=== PATIENT | female | born 2000 | race Caucasian/White ===

== ENCOUNTER 2021-01-07 13:15 | Emergency (ER) | payer SELFPAY | END 2021-01-07 13:19 | disposition left against medical advice (07) | PROVIDERS: Emergency Provider Internal Medicine Hematology & Oncology; PCP Family Medicine | DX: Z53.21 Procedure and treatment not carried out due to patient leaving prior to being seen by health care provider (principal) | CPT/HCPCS: 99199 ==

== ENCOUNTER 2021-01-07 15:29 | Emergency (ER) | payer OTHER, SELFPAY ==
[2021-01-07 15:57] VITALS: BP 112/64; PULSE 98; RESP 16; TEMP 36.9; O2SAT 99
--- NOTE | 2021-01-07 17:15 | ED.GENADULT ---
HPI - General Adult General Chief complaint: Ear Stated complaint: ear pain Source: patient Mode of arrival: ambulatory Limitations: no limitations History of Present Illness HPI narrative: Patient is a 20-year-old female who presents to the [facility] via POV for evaluation of bilateral ear pain that is been present for 2 days. Additionally, she reports nasal congestion rhinorrhea. Denies taking OTC meds for symptoms. Nothing improves or worsen symptoms. Denies known exposure to sick contacts. She is fully vaccinated for Covid. Of note, she is going to a concert in [place] soon and recently had a PCR test. PCR test has not resulted. Review of Systems Review of Systems: Denies history of COPD, bronchitis, asthma, and pneumonia. Denies current/past tobacco use. Pertinent negatives: fever, sweats, chills, change in appetite, fatigue, skin color changes, headache, hearing difficulty, ear drainage, tinnitus, vertigo, dizziness, lymphadenopathy, sinus problems, ear pain/drainage, chest pain, heart murmurs, heart palpitations, shortness of breath, wheezing, cyanosis, hemoptysis, hoarseness, orthopnea, pleuritic pain, nausea, vomiting, diarrhea, and myalgias. [facility] Past Medical History Medical History (Updated 01/07/21 @ 17:29 by Gennaro Smiley, MILLINERY BLOCKER, ) ADHD Comments I have reviewed and agree with the patient's past medical, surgical, social, and family hx as documented by the RN. There is no relevant family history pertinent to the presenting complaint. Exam Narrative: GENERAL: Well-appearing, well-nourished, and in no acute distress. HEAD: Normocephalic, atraumatic. No sinus tenderness or facial swelling appreciated. EYES: PERRLA and EOMI. No evidence of erythema, swelling, or drainage. ENT: Bilateral external ears and ear canals normal. Bilateral TMs are normal. No TM perforation. Nares clear, no rhinorrhea or epistaxis. Bilateral turbinates are moderately erythematous and edematous. Mucous membranes moist and pink. Uvula is midline is without swelling although is moderately erythematous. No evidence of petechial rash, cobblestoning, lesions, ulcers, exudates, peritonsillar abscess, tenting, or drooling. Breath odor and voice normal. NECK: Supple. No Lymphadenopathy or nuchal rigidity appreciated. CHEST: Bilateral lung guerrero are clear to auscultation. No respiratory distress. No evidence of cough or pleuritic cp upon examination. HEART: Regular rate and rhythm. No murmur, gallop, or rub heard. EXTREMITIES: Normal range of motion. No edema. SKIN: Warm, dry, no rash. NEURO: No focal deficits. Alert and oriented x3. Course Vital Signs Vital signs: Vital Signs Temperature 98.4 F 01/07/21 15:57 Pulse Rate 98 01/07/21 15:57 Respiratory Rate 16 01/07/21 15:57 Blood Pressure 112/64 01/07/21 15:57 Pulse Oximetry 99 01/07/21 15:57 Temperature 98.4 F 01/07/21 15:57 Pulse Rate 98 01/07/21 15:57 Respiratory Rate 16 01/07/21 15:57 Blood Pressure 112/64 01/07/21 15:57 Pulse Oximetry 99 01/07/21 15:57 Medical Decision Making Differential Diagnosis Differential Diagnosis: Allergic rhinitis, ABRS, acute viral sinusitis, strep pharyngitis, nasopharyngitis, bronchitis, pneumonia, AOM, otitis externa, viral URI, influenza Medical Records Medical records reviewed: Yes I reviewed the external patient's medical records. Vital Signs Vital Signs: Vital Signs Temperature 98.4 F 01/07/21 15:57 Pulse Rate 98 01/07/21 15:57 Respiratory Rate 16 01/07/21 15:57 Blood Pressure 112/64 01/07/21 15:57 Pulse Oximetry 99 01/07/21 15:57 Temperature 98.4 F 01/07/21 15:57 Pulse Rate 98 01/07/21 15:57 Respiratory Rate 16 01/07/21 15:57 Blood Pressure 112/64 01/07/21 15:57 Pulse Oximetry 99 01/07/21 15:57 Critical Care Time Critical Care Time Critical Care Time: No Discharge Plan Discharge Clinical Impression: Acute upper respiratory infection P
== END 2021-01-07 17:37 | disposition home or self-care (01) ==
PROVIDERS: Emergency Provider Nurse Practitioner Family
DX: J06.9 Acute upper respiratory infection, unspecified (principal)
CPT/HCPCS: 99213; G0463

== ENCOUNTER 2021-02-27 15:33 | Outpatient (CLI) | payer OTHER, SELFPAY ==
--- NOTE | ~2021-02-27 | XR_ITS ---
EXAMINATION: XR chest 2V DATE: 02/27/2021 15:50 INDICATION: Acute cough. TECHNIQUE: Frontal and lateral views of the chest were obtained. COMPARISON: None. FINDINGS: The chest demonstrates clear lungs without pneumonia, pleural effusion, or pneumothorax. Th e heart size is normal. IMPRESSION: 1. No acute cardiopulmonary disease. Reviewed, dictated and finalized at location A. RER HELPER
== END 2021-02-27 15:34 | disposition home or self-care (01) ==
LOC: ANHIMG 15:38
PROVIDERS: PCP Family Medicine; Visit Provider Physician Assistant
DX: R05.1 Acute cough (principal)
CPT/HCPCS: 71046

== ENCOUNTER 2022-03-05 12:58 | Outpatient (CLI) | payer OTHER, SELFPAY ==
--- NOTE | ~2022-03-05 | XR_ITS ---
XR lumbar spine 2-3V 03/05/2022 13:29 Indication: Low back pain Procedure: 3 views lumbar spine Comparison: No prior studies for comparison. Findings: Mild wedge-shaped appearance to T11 and T12, likely developmental or chronic. Vertebral bod y heights are maintained and the lumbar spine. No significant disc narrowing. There is normal alignme nt. Pedicles intact. Impression: 1: No significant abnormality of the lumbar spine. Reviewed, dictated and finalized at location A. TH PROGRAM MANAGER Impression: 1: No significant abnormality of the lumbar spine.
--- NOTE | ~2022-03-05 | XR_ITS ---
XR thoracic spine 3V DATE: 03/05/2022 13:29 INDICATION: Back pain TECHNIQUE: AP, lateral, swimmer views COMPARISON: None FINDINGS: No fracture or dislocation or bone destruction. The thoracic pedicles are intact. No parasp inal soft tissue thickening. No scoliosis. IMPRESSION: Negative Reviewed, dictated and finalized at location B. TEGIC ANALYST IMPRESSION: Negative
== END 2022-03-05 12:59 | disposition home or self-care (01) ==
LOC: ANHIMG 13:03
PROVIDERS: PCP Physician Assistant; Visit Provider Physician Assistant
DX: M54.50 Low back pain, unspecified (principal)
CPT/HCPCS: 72072; 72100

== ENCOUNTER 2022-04-27 14:00 | Outpatient (RCR) | payer OTHER, SELFPAY ==
--- NOTE | 2022-04-20 15:08 | PTOPEVAL1 ---
Assessment and note entered by Chiquita Loera, PT Evaluation Information Assessment Status Evaluation Diagnosis Ehler Danlos syndrome Onset about one year Subjective Information most concern about: legs--pain and weakness of hips, knees and ankles; more pain and discomfort over the past year; no recent falls or trauma to legs; feels like she needs to build up her stamina and activity level; have some panic when get SOB; mostly stays at home; does light cooking and tasks , does not do much; Reported Pain Level Pain Score Self Report Additional Pain Score Comments pain range in past week: 2-5/10; B hips, knees and ankles- at joints; muscle cramps and spasms; feel unsteady on feet, like knees going backwards and going to give out and fall; Assessment PT Clinical Summary Ro has the diagnosis of Ehler Danlos/ hypermobility syndrome. She reports her most concern is about pain/discomfort and weakness of her legs, and walking balance-feels off balance and cannot control her walking, bumps into things. She is not doing any fitness exercises. She does not work outside of the home and rarely goes out due to anxiety with crowds and too much stimulation. The PT order includes aquatic therapy. She was not really interested in the water therapy--stated water would probably be too much stimulation for her and too anxious about driving home with a wet suit. With the PT evaluation, she has decreased strength of trunk and LE's, with poor posture of LE's; With the 2 minute walking test, her distance was 375' and her HR increased to 124, with resting HR of 91. Skilled PT services are indicated for therapeutic exercises to increase LE and trunk strength, gait and balance, education for posture/position/ joint protection and home exercises. Plan of Care Interventions Gait Training,Hot Pack/Cold Pack,Manual Therapy, Neuro Re-education,Patient/Caregiver Education, Therapeutic Activities,Therapeutic Exercise Other Interventions taping PT Services Indicated Yes Treatment Frequency and 1x/wk for 5 weeks Duration These treatments will address the objective and functional deficits as de
--- NOTE | 2022-05-03 13:39 | PCPTNOTE ---
pt called and canceled today's appt due to someone in her home has covid.
--- NOTE | 2022-06-25 13:22 | PCPTNOTE ---
PHYSICAL THERAPY DISCHARGE 06-25-22 Attending Provider: ADY VELA MD Patient:Ro Colindres Date of :2000 Ms. Colindres has not returned for any further treatments since the initial evaluation on 04/27/2022 for the diagnosis of Ehler Danlos syndrome; therefore she will be discharged at this time. The goals were not assessed. Thank you for referring Ro to [facility].
== END 2022-06-28 10:45 | disposition home or self-care (01) ==
LOC: ANHPT 14:00
PROVIDERS: PCP Physician Assistant
DX: Q79.62 Hypermobile Ehlers-Danlos syndrome (principal)
CPT/HCPCS: 97110; 97161; 97530

== ENCOUNTER 2023-06-16 14:33 | Outpatient (CLI) | payer OTHER, SELFPAY ==
--- NOTE | ~2023-06-16 | US_ITS ---
EXAMINATION: US renal BI DATE: 06/16/2023 15:34 INDICATION: Dysuria TECHNIQUE: Multiple ultrasound grayscale images of the kidneys were obtained. COMPARISON: None. FINDINGS: The right kidney measures 11.0 x 5.7 x 5.0 cm. The left kidney measures 10.9 x 5.8 x 5.8 cm. The kidn eys demonstrate normal echogenicity. There is no hydronephrosis in either kidney. No stones identifi ed. The distended bladder appears normal with calculated prevoid bladder volume of 1149 mL with bilat eral ureteral jets visualized on color Doppler . Mildly increased calculated postvoid residual bladde r volume of 65 mL. IMPRESSION: 1. Normal kidneys without hydronephrosis. 2. Mild increased postvoid residual bladder volume of 65 mL. Reviewed, dictated and finalized at location A. IAC REHAB NURSE
== END 2023-06-16 14:34 | disposition home or self-care (01) ==
PROVIDERS: PCP Physician Assistant
DX: R30.0 Dysuria (principal)
CPT/HCPCS: 76775

== ENCOUNTER 2023-10-04 10:11 | Outpatient (CLI) | payer OTHER, SELFPAY ==
--- NOTE | 2023-10-04 10:45 | EST_ITS ---
Patient Info Name: Ro Colindres Age: 23 years : 2000 Gender: Female Ht: 71 in Wt: 121 lbs BSA: 1.64 m2 HR: 71 bpm BP: 101 / 58 mmHg Heart Rhythm: Sinus Rhythm Exam Date: 10/04/2023 10:55 AM Exam Location: Echo Lab Patient Status: Outpatient Admit Date: 10/04/2023 Staff Ordering Physician: Ebenezer Burgos DO Attending Provider: Ebenezer Burgos DO Exercise Technologist: Laura Davies CT Exercise Physician: Ebenezer Burgos DO Exam Type: CA stress test treadmill Study Info Indications R06.02 - Shortness of breath R07.89 - Other chest pain A treadmill exercise stress test was performed. Summary 1. 1. Negative Ajay exercise stress test for ischemic ST changes by ECG criteria. However, patient achieved only 77% MPHR for age group which reduces sensitivity of the test. 2. 2. Reduced functional capacity, achieving 9 METs of workload. 3. 3. Appropriate HR response to exercise. 4. 4. Appropriate HR recovery at 1 minute post exercise. 5. 5. No imaging with stress testing. 6. 6. Patient informed of the above results. Protocol: Ajay Stress ECG Details Stage: REST Duration (min): 1 min : 27 sec Speed (mph): 0.0 Grade (%): 0 HR (bpm): 63 SBP (mmHg): 101 DBP (mmHg): 58 METS: --- Stage: REST Duration (min): 24 min : 31 sec Speed (mph): 0.0 Grade (%): 0 HR (bpm): 59 SBP (mmHg): 101 DBP (mmHg): 58 METS: --- Stage: STAGE 1 Duration (min): 1 min : 0 sec Speed (mph): 1.7 Grade (%): 10 HR (bpm): 96 SBP (mmHg): 101 DBP (mmHg): 58 METS: --- Stage: STAGE 1 Duration (min): 2 min : 0 sec Speed (mph): 1.7 Grade (%): 10 HR (bpm): 106 SBP (mmHg): 101 DBP (mmHg): 58 METS: --- Stage: STAGE 1 Duration (min): 3 min : 0 sec Speed (mph): 1.7 Grade (%): 10 HR (bpm): 111 SBP (mmHg): 101 DBP (mmHg): 41 METS: --- Stage: STAGE 2 Duration (min): 1 min : 0 sec Speed (mph): 2.5 Grade (%): 12 HR (bpm): 122 SBP (mmHg): 101 DBP (mmHg): 41 METS: --- Stage: STAGE 2 Duration (min): 2 min : 0 sec Speed (mph): 2.5 Grade (%): 12 HR (bpm): 131 SBP (mmHg): 103 DBP (mmHg): 63 METS: --- Stage: STAGE 2 Duration (min): 3 min : 0 sec Speed (mph): 2.5 Grade (%): 12 HR (bpm): 136 SBP (mmHg): 103 DBP (mmHg): 63 METS: --- Stage: STAGE 3 Duration (min): 1 min : 0 sec Speed (mph): 3.4 Grade (%): 14 HR (bpm): 148 SBP (mmHg): 102 DBP (mmHg): 65 METS: --- Stage: STAGE 3 Duration (min): 1 min : 27 sec Speed (mph): 3.4 Grade (%): 14 HR (bpm): 153 SBP (mmHg): 102 DBP (mmHg): 65 METS: --- Stage: RECOVERY Duration (min): 0 min : 32 sec Speed (mph): 0.0 Grade (%): 0 HR (bpm): 144 SBP (mmHg): 102 DBP (mmHg): 65 METS: --- Stage: RECOVERY Duration (min): 1 min : 32 sec Speed (mph): 0.0 Grade (%): 0 HR (bpm): 114 SBP (mmHg): 102 DBP (mmHg): 65 METS: --- Stage: RECOVERY Duration (min):
== END 2023-10-04 10:12 | disposition home or self-care (01) ==
LOC: ANHCARD 10:12
PROVIDERS: PCP Physician Assistant; Visit Provider Internal Medicine Cardiovascular Disease
DX: R07.89 Other chest pain (principal); R06.02 Shortness of breath
CPT/HCPCS: 93017

== ENCOUNTER 2024-03-23 07:49 | Outpatient (RCR) | payer OTHER, SELFPAY ==
--- NOTE | 2024-03-23 09:02 | OPREHPOC ---
Outpatient Therapy Plan of Care This is a Multidisciplinary Plan of Care that may contain components documented by all disciplines (PT, OT, and ST.) PT Problem 1 PT Problem #1 Knowledge Deficit PT Goal 1 Goal / Goal Update *indep with HEP Target Visit 8 PT Goal 2 Goal / Goal Update * pt demonstrate correct body mechanics with lifting from floor Target Visit 8 PT Problem 2 PT Problem #2 Pain PT Goal 1 Goal / Goal Update * pain rating of trunk 4/10 at worst Target Visit 8 PT Goal 2 Goal / Goal Update * improve activity tolerance with Oswestry rating of 36% limitation in activity level Target Visit 8 PT Problem 3 PT Problem #3 Impaired Strength PT Goal 1 Goal / Goal Update increase strength of trunk and hips, to improve stability & posture to trunk and spine: 1* pt sit without rounded trunk/shoulders 2* supine bridge x 20 reps with good stability 3* side lying hip abduction to 10' R x 20 reps 4* side lying hip abduction to 10' L x 20 reps Target Visit 8
--- NOTE | 2024-03-23 09:02 | PTOPEVAL1 ---
Assessment and note entered by Chiquita Loera, PT Evaluation Information Assessment Status Evaluation Other ICD-10 Condition Codes ( M94.0 costochondritis PT) Onset about one year ago Subjective Information started as heart palpitations, hospitalized 2x due to more pain; sliver handler cleared; pain was so bad, could not do things around the house--not feed or care for cats; pain with any moving or deep breathing; kept arms at her side and did not take deep breaths; cymbalta helping- better over the past 2-3 weeks; Activity: does not work outside of home; indep with home and self care tasks; has been trying to do more-- kitchen tasks, laundry Goal: exercises to keep her moving and feeling better; Reported Pain Level Pain Score Self Report Additional Pain Score Comments pain range in the past week 1-11/18; dull pressure, heavy and poking needles through chest, heart cramping; over sternum, about the size of her hand increase pain: bending forward, supine>sit, sit> stand,moving arms, touching area decrease pain: stay still with arms at her side, cymbalta, toradol, have not used heat- cannot tolerate pressure over area, clothes touching it with sleeping, this pain does not wake her up; poor sleeper in general Assessment PT Clinical Summary Ro has the diagnosis of costochondritis. She has been cleared by sliver handler for any cardiac issues. Her medical history includes Ehler Danlos syndrome. Her pain has decreased since onset, but continues to limit her activity tolerance. Self assessment with Oswestry rating of 48% limitation in activity level. She does not work outside of the home. Reports today she is having a better day. With the evaluation: she points to her sternum as area of pain; poor standing posture--rounded shoulders and trunk with increase flexion of thoracic spine; weakness of trunk and hips; flexibility of hips WNL; active R and L shoulder motions do not increase pain; standing trunk ROM is WNL- with reports of feeling/tight with motions Skilled PT services are indicated to increase trunk &hip strength to improve posture and position of thoracic spine; modalities PRN for pain and education for HEP and posture/body mechanics. Plan of Care Interventions Electrical Stimulation,Hot Pack/Cold Pack,Manual Therapy,Neuro Re-education,Patient/Caregiver Education,Therapeutic Activities,Therapeutic Exercise,Ultrasound,Other Other Interventions taping PT Services Indicated Yes Treatment Frequency and 1-2x/wk for 8visits Duration These treatments will address the objective and functional deficits as defined above. The patient will be advanced safely and appropriately in order for the patient to progress towards his/her prior level of function. Additional exercises will be introduced and as well as a comprehensive home exercise program upon discharge, if needed, ?to ensure carryover of functional gains achieved in the clinic. This treatment plan has been reviewed and agreement upon by the patient.
--- NOTE | 2024-04-06 09:44 | PCPTNOTE ---
No call No show, reason unknown. AKDavid
--- NOTE | 2024-04-17 16:27 | PTOPDC ---
Assessment and note entered by Chiquita Loera, PT Assessment Status Discharge - Pt Not Present Other ICD-10 Condition Codes ( M94.0 costochondritis PT) Onset about one year ago Subjective Information pt called and left a message to cancel her PT. Feels it is not helping. Assessment PT Clinical Summary Ro received the PT evaluation on Mar 23. She did not show for 1 appointment, then called and canceled all of her appointments. The goals were not addressed. Discharge PT. Plan of Care PT Services Indicated No
== END 2024-04-17 16:57 | disposition home or self-care (01) ==
LOC: ANHPT 07:49
PROVIDERS: PCP Physician Assistant
DX: M94.0 Chondrocostal junction syndrome [Tietze] (principal)
CPT/HCPCS: 97110; 97161; 97530

== ENCOUNTER 2024-08-13 12:33 | Emergency (ER) | payer OTHER, SELFPAY ==
[2024-08-13 12:35] VITALS: BP 139/88; PULSE 72; RESP 14; TEMP 36.5; O2SAT 100
--- OUTSIDE RECORDS SUMMARY | 2024-08-13 12:53 | XMS_ITS | Data Portability ---
Author Organization [place] [facility], Main Office Address [address] [place] [address] Care Team Providers Care Electric Organ Assembler Name Role Phone NOEMI OCHOA Primary Care Provider GABRIELANOEMI LAWS Referring Provider [phone] Assessment Encounter Date Assessment Date Assessment LastModified by Organization Details LastModified Time 07/25/2024 07/25/2024 24-year-old patient presents today with left shoulder and scapular pain that has been going on for about a week and a half. She was working in the garage and woke up the next day with pain. She presented to the urgent care where x-rays were taken and she was given a sling. They provided her with a muscle relaxer and naproxen. She has taken naproxen and states it is helpful. She states the shoulder is starting to feel better on its own. 3/10 pain today. She states that 10 years ago she spontaneously broke a rib on that left side and is afraid that was going to happen again and wanted to get it checked out. Review of systems per patient questionnaire Imaging: X-rays reviewed show no acute bony abnormality, no fracture. Preserved joint spaces throughout. physical exam: No tenderness with palpation around the shoulder. Range of motion 150/40/ upper lumbar. 5/5 rotator cuff strength. Negative Prateek's, Neer, Eckert. Negative Spurling's. Sensation intact throughout. She states that the shoulder starting to feel better, she was mainly concerned about her ribs. No obvious issues with the ribs with palpitation or on x-ray. She can continue take the naproxen as needed. We recommend therapy exercises for the shoulder. She would like to try this on her own. We can see her back as needed for pain. She is agreement with this plan. [email or web address] Not available 07/25/2024 16:46:06 Plan of Treatment Reminders Order Date Submit Date Provider Last Modified By Organization Details Last Modified Time Details Appointments None record ed. Lab None record ed. Referral None record ed. Procedures None record ed. Surgeries None record ed. Imaging None record ed. Medication Orders None record ed. Patient TargetsNo targets recorded. Patient InstructionsNo instructions recorded. Reason for Referral None Reported. Results Created Date Observation Date Name Description Value Unit Range Abnormal Flag Note LastModifiedBy Organization Detail LastModifiedTime 07/21/19 25 07/16/2024 XR, shoul adry, 2 or more view No observ ation record ed. [email or web address] Not Available 07/10 15:30:06 Result Notes None recorded. Problems Name Problem SNOMED Code Status Onset Date Resolution Date Notes Provider Name and Address Organization Details Recorded Time Pain of left shoulder joint [id number] 09 Active 2024 DAMIAN Day, [place] 15:38:49 Problem Notes None recorded. Procedures Surgical History None recorded. Imaging Results Imaging Date Name Status LastModified by Organiz ation Details LastModified Time 07/16/2024 XR, shoulder, 2 or more view completed [email or web address] Information not available 07/20/2024 15:30:06 Procedure Notes None recorded. Medical Equipment None Reported. Medications Name Sig Start Date Stop Date Status Note LastModified by Organization Details LastModified Time ibuprofen active Not Available Not Lacy ilable Not Available Toradol active Not Available Not Avail able Not Available Vitals Date Recorded Body height Body mass index (BMI) Body weight Pain severity - 0-10 verbal numeric rating [Score] - Reported Provider Name and Address Organization Details Last Updated DateTime 07/25/2024 180.34 cm 20.9 kg/m2 80143.86 g 3 DAMIAN Day [place] 07/25/2024 15:35:44 Social History Question Answer Notes LastModified by Organizat ion Details LastModified Time Tobacco Smoking Status Current Every Day Smoker frankline DAMIAN Day [place] 07/25/2024 15:36:49 What Is Your Level Of Alcohol Consumption? Occasional Information not available 07/25/2024 What Was The Date Of Your Most Recent Tobacco Screening? 07/25/2024 [email or web address] Information not available 07/25/2024 Sex: Unknown Functional Status None recorded. Mental Status None recorded. Family History Relationship Description Onset Age of this Age Resolved Age Notes LastModified by Organization Details LastModified Time Maternal Grandfather Heart disease [email or web address] Not available 2024 15:36:03 Mother Hypertensive disorder [email or web address] Not available 2024 15:36:14 Medical History Condition Response SKIN PROBLEMS Y Gynecological HistoryNo gynecological history recorded. Obstetrics History GPAL:G 0 P 0 0 0 0 Past Encounters Encounter ID Performer Location Encounter Start Date Encounter Closed Date Diagnosis/Indication Diagnosis SNOMED-CT Code Diagnosis ICD10 Code Diagnosis Note [id number] Duncan Rizvi MD [facility] [address] [place] [address] 07/25/2024 15:16:28 07/25/2024 16:22:45 Pain of left shoulder joint [id number] M25.512 Health Concerns Section Related Observation LastModified by Organization Detai ls LastModified Time None Recorded Concern Status LastModified by Organization Details LastModified Time None Recorded Advance Directives Directive None Recorded Payers Encounter Date Sequence Insurance Name Policy Number Policy Donahue Covered Member ID Donahue Member ID Guarantor Name 07/25/2024 1 [facility] - DOS ON OR AFTER 20 (MEDICAID REPLACEMENT - HMO) Ro Colindres [id number] Ro Colindres OBGyn Episode No OBEpisode recorded.
--- OUTSIDE RECORDS SUMMARY | 2024-08-13 12:53 | XMS_ITS | Referral Summary ---
Author Organization [facility] s Address [address] [place] [address] Care Team Providers Care Chicken Vaccinator Name Role Phone Laurie Rivers MD Primary Care Prov ider Encounters Date Type Department Care Team Description 07/13/2024 Orders Only [facility] Surgery [address] [facility] Advanced Medicine 6th [place] [address] [place] [address] Promise Mcgarry PA Localized adiposity (Primary Dx) 05/26/2024 Telephone [facility] [address] [facility] [address] [place] [address] Carine Sanz MD from Last 3 Months Allergies Active Allergy Reactions Criticality Noted Date Comments Olanzapine Hives Medium 09/05/2023 Medications multivitamin tabletIndications: Vitamin Deficiency Prevention Take 1 tablet by mouth daily Active ALPRAZolam (XANAX) 1 mg tablet Take 1 tablet (1 mg total) by mouth nightly as needed for anxiety 7 tablet 4 Active thiamine (VITAMIN B1) 100 mg tablet Take 1 tablet (100 mg total) by mouth daily 30 tablet 11 4 09/22/19 25 Active cholecalciferol 25 mcg (1,000 unit) tablet Take 1 tablet (1,000 Units total) by mouth daily 30 tablet 4 Active TiZANidine (ZANAFLEX) 4 mg capsule Take 1 capsule (4 mg total) by mouth 3 (three) times a day as needed for muscle spasms 20 capsule [address] (CYMBALTA) 30 mg capsule Take 1 capsule (30 mg total) by mouth nightly 30 capsule 1 4 Active nicotine (NICODERM CQ) [address] 1 patch on the skin daily 30 patch 4 Active tiZANidine (ZANAFLEX) 4 mg tablet Take 1 tablet (4 mg total) by mouth 3 (three) times a day as needed for muscle spasms 33 tablet 1 4 Active magnesium oxide (MAG-OX) 400 mg (241.3 mg elemental magnesium) tabletIndications: hypomagnesemia Take 1 tablet (400 mg total) by mouth daily 30 tablet 4 Active lidocaine (LMX) 4 % cream Apply topically 3 (three) times a day 30 g [address] (PROTONIX) 40 mg EC tabletIndications: Treatment of Non-Bleeding Gastric Disorder Take 1 tablet (40 mg total) by mouth daily 30 tablet 11 4 02/17/20 25 Active ketorolac (TORADOL) 10 mg tablet Take 1 tablet (10 mg total) by mouth 2 (two) times a day as needed for pain 30 tablet 2 4 Active sodium zirconium cyclosilicate (Lokelma) 10 gram packetIndications: hyperkalemia Take 1 packet (10 g total) by mouth daily for 5 days 5 packet 4 Active calcium carbonate-vitamin D3 (CALTRATE 600 + D) 1500 mg (600 mg elemental) -400 units per tablet Take 1 tablet by mouth daily 30 tablet 4 Active polyethylene glycol (MIRALAX) 17 gram/dose bulk powderIndications: constipation Take 17 g by mouth daily 510 g 11 4 03/31/20 25 Active Active Problems Problem Noted Date Diagnosed Date Hyponatremia 03/02/2024 Overview (03/02/2024): Patient has chronic fluctuations in Na. Na 130 (02/28). Likely hypotonia from high fluid intake iso low solute. -Repeat BMP in 2-3 weeks and serum osm, urine osm, urine Na -ED precautions for hyponatremia given Hyperkalemia 02/26/2024 Overview (03/02/2024): Mild hyperkalemia to 5 -> 5.2. No symptoms. Likely iso muscle breakdown from anorexia. -Will re-check BMP in 2-3 weeks (~03/20) -Counseled on ED precautions (iso natalei's chronic CP) Healthcare maintenance 02/26/2024 Overview (02/26/2024): Healthcare Maintenance General -Next visit: discuss vaccinations including HPV - Contraception: - A1c (for pts c BP >135/80): No results found for: HGBA1C - Lipids (women >45 or high risk): No results found for: LDL - DEXA (women >65 or high risk): NA Cancer - Colonoscopy (age 50-75): NA - Mammogram (women age 50-74): @MAMFINDINGS@ NA - Pap (women 21-65): NA - Lung (55-80 c >30 pk-yr hx, and smoking in past 15yrs): NA Infectious Disease - HIV: ordered - HBV (if at high risk): ordered - HCV: ordered - Influenza (annually): - Td/Tdap (q10 years): - PPSV23 (age >65, immunocomp, DM, CKD, heart dz, lung dz, liver dz, EtOH, asplenia): - PCV13 (immunocomp, CKD, asplenia, cochlear implant, CSF leak): - Shingles (age >60): NA - HPV (women <26): NA - HAV (MSM or chronic liver disease): NA - HBV (DM, HIV, MSM, liver dz, CKD, healthcare workers): NA - Meningococcus (asplenia, college students): NA - HiB (asplenia, HSCT): NA -COVID: 2020 primary series Vaping nicotine dependence, tobacco product 02/09 Overview (02/26/2024): Previously smoked 4-5 cigs per day for 1-1.5 years. Has quit smoking but is vaping daily. Reports has been able to quit on and off over the year. She reports she will be able to quit on own. Finds craving hand-mouth activity and does want nicotine patch. -Discussed can consider nicotine gum or lozenge in the future Mitral valve regurgitation 02/26/2024 Overview (02/26/2024): Mild mitral valve regurgitation. Echo in 08/2023 with mild thickened MV and mild MR. No s/s. -If symptomatic, can get repeat echo Constipation 02/10/2024 Assessment & Plan (02/10/2024 3:30 PM CDT): -continue home miralax Anxiety and depression 02/10/2024 Assessment & Plan (02/13/2024 3:09 PM LOCK EXPERT): Longstanding history of depression with anxiety, with intermittent panic attacks, has underlying anorexia nervosa. States that she has been following up with a psychiatrist outpatient, but they recently retired and she is in the process of getting a new one. Does calorie counts on her own. Has been seen by [facility] psych on previous admissions. Has tried an extensive amount of psych medications without success. Currently only takes p.r.n. Xanax. Most recently she was started on doxepin and trazodone in September, discontinued medications after a few months and up titrations because she felt like they were not helping her. Psychiatry recs continuing PRN Xanax and follow up outpatient as scheduled - Scheduled Cymbalta (new, for pain) and PRN Alprazolam - Behavior (fear, eye-contact, crying etc) significantly improved after Psychiatry DEVULCANIZER LOADER and Director Of Human Resources consulted with emotional support via all team members. Anorexia nervosa, restricting type 09/15/2023 Overview (02/26/2024): BMI <18.5. Currently 17 and has mild AN. Struggled with Anorexia nervosa for years. Previously purged but has not done that currently. In 02/2024 hospital admission, Vitamin level work up to r/o any deficiencies. A,B1,C,E,K, zinc, and copper pending. vitamin level work up to r/o any deficiencies. A,B1,C,E,K, zinc, and copper normal and eval by men's leather dress belt maker and did not have re-feeding (02/10) Currently: Eating lunch and dinner which is usually vegetable and meat. Follows with therapist for eating disorder. She has increased anxiety and discomfort around being weighed and with abdominal exams. She feels like weight has been stable (from chart ~120-125 pounds). She is taking thiamine daily. -Cont following w/ outside eating disorder therapist -Cont encouraging meals -Discuss at next appointment doing DEXA: osteoporosis/osteopenia has high prevalence in AN and could be cont to CP. Patient is on Ca-Vit D supplement but may benefit from seeing bone specialist if that is occurring. -Cont annual electrolytes; monitor for constipation, GI symptoms, endocrin (thyroid, pit) Anxiety 09/06/2023 Overview (02/26/2024): Follows with psychiatrist in [facility] system who left and has appt with new psychiatrist in April. She has had anxiety and depression since age of 9 and has trialed many antidepressants without success. Most recently was on doxepin and trazodone for insomnia wo improved so d/c. A lot of anxiety around blood draws and requires week to prepare for OP blood draw. Patient feels like anxiety and mood has improved a lot since chest pain improved from hospitalization. She is currently on cymbalta -home regimen: on d/c: duloxetine 30, xanax 1 PRN. Xanax taken at most 1x and 2x a month for panic attacks and is managed by psychiatry. -Continue fu with psychiatrist -Discussed we can consider increasing cymbalta for pain and MDD at 4 weeks -Discussed [facility] does not manage chronic benzodiazepines Assessment & Plan (09/14/2023 2:49 PM CDT): Longstanding issue, associated with insomnia. Seen by psychiatrist in [facility] system in 2022, at that time also has diagnosis of depression. No benefit with numerous antidepressants. Has done talk therapy but did not help. Pt does not work, reports sedentary lifestyle, rarely leaves her house. - continue home regimen: doxepin 20 mg QHS, trazodone 50 mg QHS, alprazolam PRN (uses about once a week) - psych consulted for assistance with anxiety/depression mgmt that is likely contributing to ED , recommended to continue current management. -On initial encounter today, patient was having panic attack as blood draw was attempted. She requested to talk later. -patient had panic attacks with blood draws, she has to prepare for about a week whenever she has to go to blood work as outpatient. Patient is requesting to decrease the frequency of blood draws to daily . BMP, Mg, Ph daily -Patient is requesting hydroxyzine to be removed from her medications it does not help her. She says that whenever she is having anxiety or panic attack since hydroxyzine is the first-line she has to take that and then wait for half an hour for Xanax which takes another half an hour to function. Since it is 1 hour absolute anxiety for her, she is requesting to discontinue hydroxyzine. I have explained that dependence for hydroxyzine is less compared to Xanax, she understands and said that she will not ask for more doses of Xanax. Will discontinue hydroxyzine and makes Xanax as first-line for anxiety. Bradycardia 09/06/2023 Overview (02/26/2024): Chronic, had holter in September 2023 which showed average HR 60. No symptoms of heart palpitations, dizziness, lightheadedness. -Monitor for symptoms Assessment & Plan (02/13/2024 3:13 PM LOCK EXPERT): Chronic and asymptomatic. Patient has been evaluated in the past, previous echo unremarkable, would not order more workup at this time -Asymptomatic Assessment & Plan (09/11/2023 1:36 PM CDT): Likely contributing to overall lethargy. Suspect secondary to severe weight loss and likely underlying malnutrition related to an underlying undiagnosed eating disorder. - TTE as elsewhere - telemetry x 48 hours - has also underwent holter before and does get episodes of dizziness and sweats with jenny. Is being castillo by bilingual nanny OP Impaired attitude towards nutritional status Assessment & Plan (02/13/2024 3:00 PM LOCK EXPERT): BMI < 18.5. Has history of Anorexia nervosa, sees a therapist and calorie counts herself. Weight appears to be neutral since last admission. This admisison, RD consulted as salliet has hx of has harmful beliefs about nutrition as she has known hx of Anorexia Nervosa - Regular Diet - Ensure Max (Vanilla) TID with Meals - Much Appreciative of RD Consult. (#see Anorexia Nervosa) Assessment & Plan (09/21/2023 7:24 PM CDT): Patient for severe malnutrition with 70% weight loss in last year with bradycardia and long Qtc which increases her risk of dysrhythmia with concern for undiagnosed eating disorder. - B1 normal , C pending. B12, zinc, AM cortisol normal. Cont vit D supplement - continue home MVI, start empiric thiamine supplementation - Nutrition consulted . She needs intensive psychiatric care with a CLEAR and ESTABLISHED discharge plan before any plans for discharge are made. Given that she is eating 700-900 kcal at admission, nutrition recommended to start her at 1000kcal and increase by 200kcal/day until at goal of 30kcal/kg/day calorie count. Needs menu without nutrition facts, which was provided by RD. Very fixated on sugar intake. Has been refusing to take diet without meal tickets - regular diet although pt requested a consistent carb diet to monitor sugar intake. Do not want to place any restrictions; initially held off on giving patient meal tickets on trays. Noted in diet order. But patient gets anxious and refusing meals altogether if meal tickets are not given, so allowed meal tickets. - not interested in Ensure supplements. - psych consulted, recommended to continue current management. -Had panic attacks with q12 labs and requires xanax. She has to prepare herself for about a week for outpatient blood work as she gets anxious. She requested daily labs at night. Daily BMP, Mg, Phos -Discussed with psychiatry in a detailed manner to change her anxiety medications as her low food intake which is causing severe malnutrition which led to bradycardia, irregular menses and prolonged QTC is difficult to manage medically unless her anxiety is better controlled. As per Psychiatry patient is reluctant regarding changes to her meds. -patient requested GI evaluation as she never had fullness and abdominal pain for a long time after small amount of food. GI consulted, EGD on 09/15 normal -she had >1500 calories daily for the last 3 days with no electrolyte derangements, ready for d/c Chronic chest pain 09/06/2023 Overview (02/26/2024): Initially started in February 2023. Described as dull and can build up to sharp. Hospitalized 09/2023 and ruled out cardiac causes: TTE (08/2023) w/ normal LV and RV, mild thickened MV w/ mild MR, holter negative, w/ avg HR 60 (10/2023), EGD (09/2023) normal and bx from esophagus, stomach, duodenum wo abdomalities. Recent hospitalizatoin for 02/08-02/09 for similar symptoms. CXR wo abn. Prior to hospitalization, could not get out of bed and all activity. Symptoms improved with toradol. -02/2024: Currently pain is 2/10 but can sometimes get up to 6-7/10 and feels toradol has helped resume life again. Previously tried: ibuprofen, naproxen, pantoprazole, and GERD. Exam: severe TTP on mid sternum AP: Patient's chronic CP w/ exacerbations DDx: most likely costochondritis, possible for other MSK, osteoporosis, or small fluid collection at sternum. Fibromyalgia although less likely since improvement w/ toradol. Less likely, cardiac, GI 2/2 extensive work up. -Continue toradol 10 BID PRN w/ food; counseled to trial lidocaine gel on area of sensitivity, cont tizanadine 4 BID PRN, cymbalta 30 -At next visit, if no improvement will increase cymbalta and DEXA -Continue daily PPI for ulcer protection iso chronic toradol use -Repeat BMP -Dw radiology for other imaging and rec CT chest w/contrast to ro abscess, fluid collection. Do no recommend bone scan (used for bone mets and osteo). Assessment & Plan (02/26/2024 10:29 AM LOCK EXPERT): >>ASSESSMENT AND PLAN FOR ACUTE CHEST PAIN WRITTEN ON 09/19/2023 3:36 PM BY CINDY SANTIAGO MD Ongoing chest discomfort for about 1 month, currently presenting with acute worsening pain. Symptoms do not sound ischemic in nature. Due to concern for malnutrition/eating disorder, some concern for structural cardiac etiology from muscle atrophy with consideration for mitral valve prolapse. Also suspect contribution from baseline severe anxiety. Noted improvement with Toradol, which may suggest MSK/costochondritis component as well. - TTE with mild MV thickening and mild MR but no significant change compared to 2021. EKG with SB - telemetry x 48 hours with no events - lipid panel WNL - continue pain control with APAP - management of malnutrition, bradycardia, anxiety as elsewhere Assessment & Plan (02/13/2024 2:57 PM LOCK EXPERT): Patient presents with symptoms of chest pain does not seem to be new, had an exact similar admission in September 2023. Prior EGD within normal limits ; Previous echocardiogram without any acute abnormalities. Currently, symptoms not related to any cardiogenic etiology or GI etiologies at this time. Exam with notable tenderness to palpation to the chest wall, with findings consistent with Costochondritis, though patient does have known hx of Ehrlos-Danlos, and Vitamin deficiency. Toradol (prn) has significantly improved symptoms, per patient. She has been Educated the Risk of Toradol including Renal Injury, Development of increased Reflux, and Risk of Stomach Ulcers. -Scheduled Cymbalta, PRN Toradol, and PRN Trialodine. -Eat solid food when taking Toradol. -Follow up with Primary Care Clinic on 02/22/2024 at 11:45am. Major depressive disorder with single episode Resolved Problems Problem Noted Date Diagnosed Date Resolved Date Dyspepsia 02/10/2024 02/26/2024 Anorexia nervosa 02/09/2024 02/26/2024 Assessment & Plan (02/13/2024 3:08 PM LOCK EXPERT): Patient has longstanding history of anorexia nervosa, previously hospitalized in September 2023 with malnutrition, has underlying history of severe anxiety/depression. Prior admission, was recommended to closely work with psychiatrist that specializes with eating disorders, however states that her insurance coverage has been a challenge This Admission Patient presents with very similar symptoms of diaphoresis, chest pain, palpitations and feeling fatigue right after eating. States that she eats every 18-22 hours, still following intermittent fasting infrequently RD consulted. Low concern for refeeding syndrome. Continued to monitor BMP and Magnesium. - Vitamin level work up to r/o any deficiencies. A,B1,C,E,K, zinc, and copper pending. D is 38 improved from prior 25 with supplement. B12 and folate are good. - Psychiatry Consulted and no additional interventions recommended. Psychiatry also so patient with Director Of Human Resources ( Annalee) on 02/13/24. - Patient could benefit from being seen at an eating disorder center outpatient, will defer to Primary Psychiatrist - Plans for patient to follow up with Psychiatrist Dr. Valladares 03/22/24 at 1:30pm Chest pain 09/06/2023 02/13/2024 Constipation 09/06/2023 02/26/2024 Assessment & Plan (09/19/2023 3:38 PM CDT): Resolved, Continue home Miralax. Dysphagia 09/05/2023 02/26/2024 Abnormal genetic test 07/24/20222023 Encounter for pharmacogenetic testing 03/12/2022 02/26/2024 Social History Tobacco Use Types Packs/Day Years Used Date Smoking Tobacco: Every Day Cigarettes Smokeless Tobacco: Never AUDIT-C Answer Date Recorded Q1: How often do you have a drink containing alcohol? Never 09/16/2023 Q2: How many drinks containi ng alcohol do you have on a typical day when you are drinking? Patient does not drink Q3: How often do you have si x or more drinks on one occasion? Never 09/16/2023 Hunger Vital Sign Answer Date Recorded Within the past 12 months, y ou worried that your food would run out before you got the money to buy more. Never true 02/22/20 Within the past 12 months, t he food you bought just didn't last and you didn't have money to get more. Never true 02/22/2024 Personal Safety Answer Date Recorded Have you ever been in or are you currently in a harmful physical or emotional relationship or is someone making you feel afraid or unsafe? Denies 02/09/2024 Comments No Sex and Gender Information Value Date Recorded Sex Assigned at Not on file Legal Sex Female 12:52 PM LOCK EXPERT Gender Identity Not on file Sexual Orientation Not on file Last Filed Vital Signs Vital Sign Reading Time Taken Comments Blood Pressure 127/82 02/22/2024 10:04 AM LOCK EXPERT Pulse 52 02/22/2024 10:04 AM LOCK EXPERT Temperature 36.8 C (98.2 F) 02/22/2024 10:04 AM LOCK EXPERT Respiratory Rate 18 02/22/2024 10:04 AM LOCK EXPERT Oxygen Saturation 99% 02/22/2024 10:04 AM LOCK EXPERT Inhaled Oxygen Concentration - - Weight 55.6 kg (122 lb 8 oz) 02/09/2024 5:50 PM CDT Height 180.3 cm (5' 11 ) 02/09/2024 5:50 PM CDT Body Mass Index 17.09 02/09/2024 5:50 PM CDT Plan of Treatment Not on file Procedures Procedure Name Priority Date/Time Associated Diagnosis Comments HEPATITIS C ANTIBODY Routine 02/29/2024 9:43 AM LOCK EXPERT from Last 3 Months or Most Recently Relevant to Health Maintenance Results * Hepatitis C antibody (02/29/2024 9:43 AM LOCK EXPERT) Hep C Ab NON-REACTI VE NON-REACT [facility] Comment: HCV antibody was non-reactive. There is no laboratory evidence of HCV infection. In most cases, no further action is required. However, if recent HCV exposure is suspected, a test for HCV RNA (test code 47901) is suggested. For additional information please refer to http://education.Innove[employer]ra/faq/YUD73e9 (This link is being provided for informational/ educational purposes only.) 02/29/2024 9:43 AM LOCK EXPERT 02/29/2024 9:43 AM LOCK EXPERT Laurie Rivers MD LAB MICROBIOLOGY - GENERAL ORDERABLES Final Result [facility] [address] [place] [address] from Last 3 Months or Most Recently Relevant to Health Maintenance Insurance [facility] Advance Directives For more information, please contact: [phone] * Full Code (Latest Code Status on File) Date Activated Date Inactivated Comments 02/09/2024 5:27 PM 02/13/2024 9:57 PM * Full Code Date Activated Date Inactivated Comments 09/06/2023 3:11 AM 09/21/2023 4:51 PM Care Teams Chicken Vaccinator Relationship Specialty Start Date End Date Laurie Rivers MD [address] [address] PCP - General Internal Medicine 02/26/24
--- OUTSIDE RECORDS SUMMARY | 2024-08-13 12:53 | XMS_ITS | CONTINUITY OF CARE DOCUMENT ---
Author Name elijah nava Address Unknown Organization [facility] Address [address] [place] [address] [address] [place] [address] Phone [phone] Care Team Providers Care Contract Clerk Automobile Name Role Phone Cynthia CERVANTES, Gregoria Unavailable [phone] NOEMI OCHOA PA-C Unavailable [phone] INSURANCE PROVIDERS Payer name Policy type / Coverage type [place] red libertarian ID BILL MEDICAID (2) Medicaid [id number]
--- OUTSIDE RECORDS SUMMARY | 2024-08-13 12:53 | XMS_ITS | Clinical Summary ---
Author Organization [facility] Address [address] [place] [address] Care Team Providers Care Dockmaster Name Role Phone Unavailable Primary Care Provider Unavailabl e Source Comments [facility],non-owned Affiliates and Associated Physician Practices is amultiple site organization consisting of ambulatory clinics and hospital sitesin [place], [place], [place] and [place]. This disclosure is being madepursuant to the Care Everywhere program and may not contain all information available regarding this patient. Last updated 17.[facility] Social History Tobacco Use Types Packs/Day Years Used Date Smoking Tobacco: Never Assessed Comments Unknown Sex and Gender Information Value Date Recorded Sex Assigned at Not on file Legal Sex Female 1:39 PM CDT Gender Identity Not on file Sexual Orientation Not on file Plan of Treatment Health Maintenance Due Date Last Done Comments PAP SMEAR 2001 HIV SCREENING 2016 HPV VACCINE (1 - 3-dose series) 2016 CHLAMYDIA/GONORRHEA SCREENING 2017 MENINGOCOCCAL (Group B) VACC INE SHARED DECISION-MAKING (1 of 2 - Standard) 2017 HEPATITIS C SCREENING 04/27/2019 DTAP/TDAP/TD VACCINES (1 - Tdap) 2020 HEPATITIS B VACCINE (1 of 3 - 19+ 3-dose series) 2020 COVID-19 VACCINE (1 - 2023-2 5 season) 2023 DEPRESSION SCREENING 04/11/2024 INFLUENZA VACCINE (Season Ended) 2024 ZOSTER VACCINE (1 of 2) 2051 HIB VACCINE Aged Out No longer eligi ble based on patient's age to complete this topic MENINGOCOCCAL GROUPS A/C/Y/W VACCINE Aged Out No longer eligible b ased on patient's age to complete this topic PNEUMOCOCCAL VACCINE Aged Out No long er eligible based on patient's age to complete this topic
--- OUTSIDE RECORDS SUMMARY | 2024-08-13 12:53 | XMS_ITS | Clinical Summary ---
Author Organization [facility] Address [address] [place] [address] Phone Care Team Providers Care Build Master Name Role Phone Promise Mcgarry [facility] Primary Care Provider + [phone] Medications doxepin (SINEQUAN) 10 MG Capsule Take 10 mg by mouth nightly. Active ALPRAZolam (XANAX) 1 MG Tablet Take 1 mg by mouth 3 times daily as needed. Active Active Problems Problem Noted Date Diagnosed Date Borderline personality disorder 04/12/2023 Family History Relation Name Status Comments Brother (25) Alive Father Alive Mother Alive Sister (29) Alive Social History Tobacco Use Types Packs/Day Years Used Date Smoking Tobacco: Every Day Cigarettes Smokeless Tobacco: Never Tobacco Cessation:Ready to Q uit: Not Asked; Counseling Given: Not Answered Alcohol Use Standard Drinks/Week Comments Not Currently 0 (1 standard drink = 0.6 oz pur e alcohol) Comments Unknown Sex and Gender Information Value Date Recorded Sex Assigned at Not on file Legal Sex Female 11:52 AM CDT Gender Identity Not on file Sexual Orientation Not on file Plan of Treatment Health Maintenance Due Date Last Done Comments Hepatitis C Virus (HCV) Screening 2001 TdaP Immunization 2001 Human Papillomavirus (HPV) Immunization (1 - 3-dose series) 2016 Meningococcal B Immunization (1 of 2 - Standard) 2017 Hepatitis B Immunization (1 of 3 - 19+ 3-dose series) 2020 Pneumococcal Immunization Combined (1 of 2 - PCV) 2020 Pap Smear 2022 Influenza Immunization (#1) 2023 04/05/2021, 1 Respiratory Syncytial Virus (RSV) Immunization (Adult) (1 - 1-dose 75+ series) 2076 SARS-COV-2 Immunization Completed 01/19/20 24, 04/05/2021, 07/31/2020, Additional history exists Meningococcal Immunization (ACWY) Aged Out No longer eligible based on patient's age to complete this topic Rotavirus Immunization Aged Out No lo nger eligible based on patient's age to complete this topic Goals Goal Patient Goal Type Associated Problems Recent Progress Patient-Stated? Author Behavioral Health Behavioral Health Worsening( 8:07 AM CDT) Yes Boubacar Cook PSYD Note: Patient wishes to improve her life situation, such as getting a job, becoming more independent of her mother, and other lifestyle changes. Depression Depression Worsening( 8:07 AM CDT) No Boubacar Cook PSYD Note: Goal/Objective: Decrease symptoms of depression and anxiety. Anticipated Time Frame for Goal Completion: 8 weeks Goal Reviewed with: patient Readiness to change: Ready to change Department associated with goal: [facility] Steps to achieve goal: will attend counseling/psychotherapy sessions at least once monthly at least 6 sessions , utilizing individual and/or group sessions to express thoughts and feelings. to identify, verbalize and process at least three contributing factors/triggers to anxiety and depression. T o identify at least two lifestyle changes/habits. to put into action, at least one lifestyle change/habit, for one month or longer, to reduce and or cope with anxiety and depression. Insurance MEDICAID [employer] Care Teams Build Master Relationship Specialty Start Date End Date Promise Mcgarry, ALCON [address] [place] [address] PCP - General Physician Retention Representative 02/14/23
--- OUTSIDE RECORDS SUMMARY | 2024-08-13 12:53 | XMS_ITS | Clinical Summary ---
Author Organization [facility] Address [address] [place] [address] Care Team Providers Care Mine Car Repairer Name Role Phone Laurie Rivers MD Primary Care Prov ider Allergies Active Allergy Reactions Criticality Noted Date [...] weeks (~03/20) -Counseled on ED precautions (iso patietn's chronic CP) Healthcare maintenance 02/26/2024 Overview (02/26/2024): Healthcare Maintenance General -Next visit: discuss vaccinations including HPV - Contraception: - A1c (for pts c BP >135/80): No results found for: HGBA1C - Lipids (women >45 or high risk): No results found for: LDL - DEXA (women >65 or high risk): NA Cancer - Colonoscopy (age 50-75): NA - Mammogram (women age 50-74): @MELIDA@ NA - Pap (women 21-65): NA - [...] 02/10/2024 Assessment & Plan (02/13/2024 3:09 PM HOTEL RECEPTIONIST): Longstanding history of depression with anxiety, with intermittent panic attacks, has underlying anorexia nervosa. States that she has been following up with a psychiatrist outpatient, but they recently retired and she is in the process of getting a new one. Does calorie counts on her own. Has been seen by [facility] psych on previous admissions. Has tried [...] eye-contact, crying etc) significantly improved after Psychiatry STEWARD/STEWARDESS DECK and Welding Machine Operator Gas consulted with emotional support via all team [...] zinc, and copper normal and eval by director critical care and did not have re-feeding (02/10) Currently: [...] 09/06/2023 Overview (02/26/2024): Follows with psychiatrist in [facility] system who left and has appt [...] associated with insomnia. Seen by psychiatrist in [facility] system in 2022, at that time [...] symptoms Assessment & Plan (02/13/2024 3:13 PM HOTEL RECEPTIONIST): Chronic and asymptomatic. Patient has been evaluated [...] sweats with jenny. Is being castillo by cargo worker OP Impaired attitude towards nutritional status Assessment & Plan (02/13/2024 3:00 PM HOTEL RECEPTIONIST): BMI < 18.5. Has history of Anorexia nervosa, sees a therapist and calorie counts herself. Weight appears to be neutral since last admission. This admisison, RD consulted as brigido has hx of has harmful beliefs about [...] without nutrition facts, which was provided by [facility]. Very fixated on sugar intake. Has been [...] osteo). Assessment & Plan (02/26/2024 10:29 AM HOTEL RECEPTIONIST): >>ASSESSMENT AND PLAN FOR ACUTE CHEST PAIN [...] elsewhere Assessment & Plan (02/13/2024 2:57 PM HOTEL RECEPTIONIST): Patient presents with symptoms of chest pain [...] 02/26/2024 Assessment & Plan (02/13/2024 3:08 PM HOTEL RECEPTIONIST): Patient has longstanding history of anorexia nervosa, [...] interventions recommended. Psychiatry also so patient with Welding Machine Operator Gas ( Annalee) on 02/13/24. - Patient could [...] 07/24/20222023 Encounter for pharmacogenetic testing 03/12/2022 02/26/2024 Encounters Date Type Department Care Team Description 07/13/2024 Orders Only [facility] Surgery [address] Advanced Medicine 6th [place] [address] [place] [address] Promise Mcgarry PA Localized adiposity (Primary Dx) 05/26/2024 Telephone [facility] Medicine Clinic [address] [place] [address] Carine Sanz MD from Last 3 Months Medical History Medical History Date Comments Jhonatan-Danlos disease Autism spectrum disorder Anxiety Family History Medical History Relation Name Comments Hypertension Father Hypertension Mother Relation Name Status Comments Father Alive Mother Alive Social History Tobacco Use Types Packs/Day [...] money to buy more. Never true 02/22/20 24 Within the past 12 months, t he [...] on file Legal Sex Female 12:52 PM HOTEL RECEPTIONIST Gender Identity Not on file Sexual Orientation Not on file Obstetrics History Last Filed Vital Signs Vital Sign Reading Time Taken Comments Blood Pressure 127/82 02/22/2024 10:04 AM HOTEL RECEPTIONIST Pulse 52 02/22/2024 10:04 AM HOTEL RECEPTIONIST Temperature 36.8 C (98.2 F) 02/22/2024 10:04 AM HOTEL RECEPTIONIST Respiratory Rate 18 02/22/2024 10:04 AM HOTEL RECEPTIONIST Oxygen Saturation 99% 02/22/2024 10:04 AM HOTEL RECEPTIONIST Inhaled Oxygen Concentration - - Weight 55.6 kg (122 lb 8 oz) 02/09/2024 5:50 PM CDT Height 180.3 cm (5' 11 ) 02/09/2024 5:50 PM CDT Body Mass Index 17.09 02/09/2024 5:50 PM CDT Plan of Treatment Health Maintenance Due Date Last Done Comments Cervical Cancer Screening 2001 Depression Screening 2001 DTaP/Tdap/Td Vaccine (1 - Tdap) 2012 Varicella Vaccines (1 of 2 - 13+ 2-dose series) 2014 HPV Vaccines (1 - 3-dose series) 2016 Meningococcal B Vaccine (1 o f 2 - Standard) 2017 Regular Well Visit/Exam 18-64 2019 Pneumococcal vaccine <65 (1 of 2 - PCV) 2020 Covid-19 Vaccine (4 - 2023-2 5 season) 2023 04/05/2021, 07/31/2020, 07/03/2020 Influenza Vaccine Completed 01/19/2024, , 01/10/2020, Additional history exists Hepatitis B Screening Completed 02/29/2024 Hepatitis C Screening Completed 02/29/2024 Procedures Procedure Name Priority Date/Time Associated Diagnosis Comments HEPATITIS C ANTIBODY Routine 02/29/2024 9:43 AM HOTEL RECEPTIONIST from Last 3 Months or Most Recently Relevant to Health Maintenance Results * Hepatitis C antibody (02/29/2024 9:43 AM HOTEL RECEPTIONIST) Hep C Ab NON-REACTI VE NON-REACT JANEL [facility] Comment: HCV antibody was non-reactive. There is no laboratory evidence of HCV infection. In most cases, no further action is required. However, if recent HCV exposure is suspected, a test for HCV RNA (test code 05562) is suggested. For additional information please refer to http://education.[employer]/faq/BBF10q7 (This link is being provided for informational/ educational purposes only.) 02/29/2024 9:43 AM HOTEL RECEPTIONIST 02/29/2024 9:43 AM HOTEL RECEPTIONIST Laurie Rivers MD LAB MICROBIOLOGY - GENERAL ORDERABLES Final Result [facility] [address] [place] [address] from Last 3 Months or Most Recently Relevant to Health Maintenance Insurance [facility] Advance Directives For more information, please contact: [phone] * Full Code (Latest Code Status on File) Date Activated Date Inactivated Comments 02/09/2024 5:27 PM 02/13/2024 9:57 PM * Full Code Date Activated Date Inactivated Comments 09/06/2023 3:11 AM 09/21/2023 4:51 PM Care Teams Mine Car Repairer Relationship Specialty Start Date End Date Laurie Rivers MD [address] [phone] PCP - General Internal Medicine 02/26/24
--- NOTE | 2024-08-13 15:38 | PC.NURSE ---
Pt called to go back to a room, no answer. Pt not in waiting room
--- OUTSIDE RECORDS SUMMARY | 2024-08-13 16:17 | XMS_ITS | Clinical Summary ---
Author Organization [facility] Address [address] [place] [address] Care Team Providers Care Ur Coordinator Name Role Phone Laurie Rivers MD Primary [...] 02/10/2024 Assessment & Plan (02/13/2024 3:09 PM STRATEGIC INTELLIGENCE OFFICER): Longstanding history of depression with anxiety, with intermittent panic attacks, has underlying anorexia nervosa. States that she has been following up with a psychiatrist outpatient, but they recently retired and she is in the process of getting a new one. Does calorie counts on her own. Has been seen by [facility] psych on previous admissions. Has tried an [...] eye-contact, crying etc) significantly improved after Psychiatry TYING IN MACHINE OPERATOR and Cloth Finishing Range Operator consulted with emotional support via all team [...] zinc, and copper normal and eval by bailiff and did not have re-feeding (02/10) Currently: [...] 09/06/2023 Overview (02/26/2024): Follows with psychiatrist in [facility] system who left and has appt with [...] associated with insomnia. Seen by psychiatrist in [facility] system in 2022, at that time also [...] symptoms Assessment & Plan (02/13/2024 3:13 PM STRATEGIC INTELLIGENCE OFFICER): Chronic and asymptomatic. Patient has been evaluated [...] sweats with jenny. Is being castillo by ethylbenzene converter operator OP Impaired attitude towards nutritional status Assessment & Plan (02/13/2024 3:00 PM STRATEGIC INTELLIGENCE OFFICER): BMI < 18.5. Has history of Anorexia [...] osteo). Assessment & Plan (02/26/2024 10:29 AM STRATEGIC INTELLIGENCE OFFICER): >>ASSESSMENT AND PLAN FOR ACUTE CHEST PAIN [...] elsewhere Assessment & Plan (02/13/2024 2:57 PM STRATEGIC INTELLIGENCE OFFICER): Patient presents with symptoms of chest pain [...] 02/26/2024 Assessment & Plan (02/13/2024 3:08 PM STRATEGIC INTELLIGENCE OFFICER): Patient has longstanding history of anorexia nervosa, [...] interventions recommended. Psychiatry also so patient with Cloth Finishing Range Operator ( Annalee) on 02/13/24. - Patient could [...] Department Care Team Description 07/13/2024 Orders Only [facility] Surgery [address] Advanced Medicine 6th [place] [address] [place] [address] Promise Mcgarry PA Localized adiposity (Primary Dx) 05/26/2024 Telephone [facility] Primary Care Medicine Clinic [address] [place] [address] Carine Sanz MD from Last 3 Months [...] on file Legal Sex Female 12:52 PM STRATEGIC INTELLIGENCE OFFICER Gender Identity Not on file Sexual Orientation Not on file Obstetrics History Last Filed Vital Signs Vital Sign Reading Time Taken Comments Blood Pressure 127/82 02/22/2024 10:04 AM STRATEGIC INTELLIGENCE OFFICER Pulse 52 02/22/2024 10:04 AM STRATEGIC INTELLIGENCE OFFICER Temperature 36.8 C (98.2 F) 02/22/2024 10:04 AM STRATEGIC INTELLIGENCE OFFICER Respiratory Rate 18 02/22/2024 10:04 AM STRATEGIC INTELLIGENCE OFFICER Oxygen Saturation 99% 02/22/2024 10:04 AM STRATEGIC INTELLIGENCE OFFICER Inhaled Oxygen Concentration - - Weight 55.6 [...] HEPATITIS C ANTIBODY Routine 02/29/2024 9:43 AM STRATEGIC INTELLIGENCE OFFICER from Last 3 Months or Most Recently Relevant to Health Maintenance Results * Hepatitis C antibody (02/29/2024 9:43 AM STRATEGIC INTELLIGENCE OFFICER) Hep C Ab NON-REACTI VE NON-REACT JANEL [facility] Comment: HCV antibody was non-reactive. There is no laboratory evidence of HCV infection. In most cases, no further action is required. However, if recent HCV exposure is suspected, a test for HCV RNA (test code 69803) is suggested. For additional information please refer to http://education.[employer]/faq/EXY17f1 (This link is being provided for informational/ educational purposes only.) 02/29/2024 9:43 AM STRATEGIC INTELLIGENCE OFFICER 02/29/2024 9:43 AM STRATEGIC INTELLIGENCE OFFICER Laurie Rivers MD LAB MICROBIOLOGY - GENERAL ORDERABLES Final Result [facility] [address] [place] [address] from Last 3 Months or Most Recently Relevant to Health Maintenance Insurance [facility] Advance Directives For more information, please contact: [phone] * Full Code (Latest Code Status on File) Date Activated Date Inactivated Comments 02/09/2024 5:27 PM 02/13/2024 9:57 PM * Full Code Date Activated Date Inactivated Comments 09/06/2023 3:11 AM 09/21/2023 4:51 PM Care Teams Ur Coordinator Relationship Specialty Start Date End Date Laurie Rivers MD [address] [phone] PCP - General Internal Medicine 02/26/24
--- OUTSIDE RECORDS SUMMARY | 2024-08-13 16:17 | XMS_ITS | Referral Summary ---
Author Organization [facility] Address [address] [place] [address] Care Team Providers Care Java Developer With Security Clearance Name Role Phone Laurie Rivers MD Primary Care Prov ider Encounters Date Type Department Care Team Description 07/13/2024 Orders Only [facility] Surgery [address] [facility] [address] Advanced Medicine 6th [place] [address] [place] [address] Promise Mcgarry PA Localized adiposity (Primary Dx) 05/26/2024 Telephone [facility] Primary Care Medicine Clinic [address] [facility] [address] [place] [address] Carine Sanz MD from Last [...] weeks (~03/20) -Counseled on ED precautions (iso natalie's chronic CP) Healthcare maintenance 02/26/2024 Overview (02/26/2024): [...] 02/10/2024 Assessment & Plan (02/13/2024 3:09 PM ICE HOCKEY COACH): Longstanding history of depression with anxiety, with intermittent panic attacks, has underlying anorexia nervosa. States that she has been following up with a psychiatrist outpatient, but they recently retired and she is in the process of getting a new one. Does calorie counts on her own. Has been seen by [facility] psych on previous admissions. Has tried an [...] eye-contact, crying etc) significantly improved after Psychiatry GOLF BALL TRIMMER and Leverman consulted with emotional support via all team [...] zinc, and copper normal and eval by salvage engineering technician and did not have re-feeding (02/10) Currently: [...] 09/06/2023 Overview (02/26/2024): Follows with psychiatrist in [facility] system who left and has appt with [...] associated with insomnia. Seen by psychiatrist in [facility] system in 2022, at that time also [...] symptoms Assessment & Plan (02/13/2024 3:13 PM ICE HOCKEY COACH): Chronic and asymptomatic. Patient has been evaluated [...] sweats with jenny. Is being castillo by web offset press feeder OP Impaired attitude towards nutritional status Assessment & Plan (02/13/2024 3:00 PM ICE HOCKEY COACH): BMI < 18.5. Has history of Anorexia [...] osteo). Assessment & Plan (02/26/2024 10:29 AM ICE HOCKEY COACH): >>ASSESSMENT AND PLAN FOR ACUTE CHEST PAIN [...] elsewhere Assessment & Plan (02/13/2024 2:57 PM ICE HOCKEY COACH): Patient presents with symptoms of chest pain [...] 02/26/2024 Assessment & Plan (02/13/2024 3:08 PM ICE HOCKEY COACH): Patient has longstanding history of anorexia nervosa, [...] interventions recommended. Psychiatry also so patient with Leverman ( Annalee) on 02/13/24. - Patient could [...] on file Legal Sex Female 12:52 PM ICE HOCKEY COACH Gender Identity Not on file Sexual Orientation Not on file Last Filed Vital Signs Vital Sign Reading Time Taken Comments Blood Pressure 127/82 02/22/2024 10:04 AM ICE HOCKEY COACH Pulse 52 02/22/2024 10:04 AM ICE HOCKEY COACH Temperature 36.8 C (98.2 F) 02/22/2024 10:04 AM ICE HOCKEY COACH Respiratory Rate 18 02/22/2024 10:04 AM ICE HOCKEY COACH Oxygen Saturation 99% 02/22/2024 10:04 AM ICE HOCKEY COACH Inhaled Oxygen Concentration - - Weight 55.6 kg (122 lb 8 oz) 02/09/2024 5:50 PM CDT Height 180.3 cm (5' 11 ) 02/09/2024 5:50 PM CDT Body Mass Index 17.09 02/09/2024 5:50 PM CDT Plan of Treatment Not on file Procedures Procedure Name Priority Date/Time Associated Diagnosis Comments HEPATITIS C ANTIBODY Routine 02/29/2024 9:43 AM ICE HOCKEY COACH from Last 3 Months or Most Recently Relevant to Health Maintenance Results * Hepatitis C antibody (02/29/2024 9:43 AM ICE HOCKEY COACH) Hep C Ab NON-REACTI VE NON-REACT JANEL [facility] Comment: HCV antibody was non-reactive. There is no laboratory evidence of HCV infection. In most cases, no further action is required. However, if recent HCV exposure is suspected, a test for HCV RNA (test code 98813) is suggested. For additional information please refer to http://education.[employer]/faq/QAI72t4 (This link is being provided for informational/ educational purposes only.) 02/29/2024 9:43 AM ICE HOCKEY COACH 02/29/2024 9:43 AM ICE HOCKEY COACH Laurie Rivers MD LAB MICROBIOLOGY - GENERAL ORDERABLES Final Result [facility] [address] [place] [address] from Last 3 Months or Most Recently Relevant to Health Maintenance Insurance [employer] Advance Directives For more information, please contact: [phone] * Full Code (Latest Code Status on File) Date Activated Date Inactivated Comments 02/09/2024 5:27 PM 02/13/2024 9:57 PM * Full Code Date Activated Date Inactivated Comments 09/06/2023 3:11 AM 09/21/2023 4:51 PM Care Teams Java Developer With Security Clearance Relationship Specialty Start Date End Date Laurie Rivers MD [address] [address] PCP - General Internal Medicine 02/26/24
--- OUTSIDE RECORDS SUMMARY | 2024-08-13 16:17 | XMS_ITS | Clinical Summary ---
Author Organization [facility] Address [address] [place] [address] Phone Care Team Providers Care Biomedical Engineer Name Role Phone Promise Mcgarry [facility] Primary Care Provider + [phone] Medications doxepin (SINEQUAN) 10 MG Capsule Take [...] Ready to change Department associated with goal: [facility] Steps to achieve [...] Insurance MED[employer]ID [employer] Care Teams Biomedical Engineer Relationship Specialty Start Date End Date Promsie Mcgarry, ALCON [address] [place] [address] PCP - General Physician Helper Electrical 02/14/23
--- OUTSIDE RECORDS SUMMARY | 2024-08-13 16:17 | XMS_ITS | CONTINUITY OF CARE DOCUMENT ---
Author Name elijah nava Address Unknown Organization [facility] Address [address] [place] [address] [address] [place] [address] Phone [phone] Care Team Providers Care Lathe Turner Name Role Phone Cynthia CERVANTES, Gregoria Unavailable [phone] NOEMI OCHOA PA-C Unavailable [phone] INSURANCE PROVIDERS Payer name Policy type / Coverage type [place] ID BILL MEDICAID (2) Medicaid [id number]
--- OUTSIDE RECORDS SUMMARY | 2024-08-13 16:17 | XMS_ITS | Clinical Summary ---
Author Organization [facility] Address [address] [place] [address] Care Team Providers Care Inspector Experimental Assembly Name Role Phone Unavailable Primary Care Provider Unavailabl e Source Comments [facility],non-owned Affiliates and Associated Physician Practices is amultiple site organization consisting of ambulatory clinics and hospital sitesin [place], [place], [place]. This disclosure is being madepursuant to the Care Everywhere program and may not contain all information available regarding this patient. Last updated 17.[facility] Social History Tobacco Use Types Packs/Day Years [...]
== END 2024-08-13 16:28 | disposition left against medical advice (07) ==
LOC: ANHED 15:41
PROVIDERS: PCP Physician Assistant
DX: R22.40 Localized swelling, mass and lump, unspecified lower limb (principal)
CPT/HCPCS: 99199